=== PATIENT | female | born 1965 | race Caucasian/White ===

== ENCOUNTER 2016-08-11 13:20 | Emergency (ER) | payer MEDICAID ==
[2016-08-11] MEDS ORDERED: DUONEB INH ONE ×2 (17:02)
[2016-08-11] MEDS ORDERED: METHYLPRED SOD SUCC 125 MG/2 ML VIAL ONE (17:08)
[2016-08-11] MEDS ORDERED: KETOROLAC 30 MG/ML VIAL ONE (17:08)
[2016-08-11] MEDS ORDERED: CYCLOBENZAPRINE 10 MG TAB ONE (21:02)
== END 2016-08-11 21:25 | disposition home or self-care (01) ==
LOC: ER 13:20
CPT/HCPCS: 71020; 93005; 94640; 96375

== ENCOUNTER 2016-08-13 11:46 | Inpatient (IN) | payer MEDICAID ==
[~2016-08-13] VITALS: Ht 160 cm; Wt 63.5 kg
[2016-08-13] MEDS ORDERED: DUONEB INH ONE ×2 (12:17)
[2016-08-13] MEDS ORDERED: KETOROLAC 30 MG/ML VIAL ONE (13:40)
[2016-08-13] MEDS: NEB-XOPENEX 0.63 MG/3 ML INH SCH ×3 (15:30→23:00)
[2016-08-13] MEDS ORDERED: SALINE FLUSH 10 ML FLUSH PRN (15:30)
[2016-08-13 16:53] VITALS: BP_SYST 136; BP_SYST 138; RESP 20; TEMP 98
[2016-08-13 17:03] VITALS: Ht 160 cm; Wt 63.5 kg
[2016-08-13 17:29] VITALS: RESP 16
[2016-08-13] MEDS: AZITHROMYCIN 500 MG in SODIUM CHLORIDE 0.9% 250 ML IV SCH (17:45)
[2016-08-13] MEDS: ENOXAPARIN 40 MG/0.4 ML SYR SUBQ SCH (17:45)
[2016-08-13] MEDS: METHYLPRED SOD SUCC 125 MG/2 ML VIAL IV SCH ×2 (18:00→23:35)
[2016-08-13] MEDS ORDERED: PROMETHAZINE 12.5 MG TAB PO PRN (18:15)
[2016-08-13] MEDS: oxyCODONE/APAP 10/325 TABLET PO PRN (18:40)
[2016-08-13 19:50] VITALS: BP_SYST 119; RESP 20; TEMP 98.3
[2016-08-13] MEDS: LEVETIRACETAM 500 MG TAB PO SCH (20:30)
[2016-08-13] MEDS: QUEtiapine 100 MG TAB PO SCH (20:30)
[2016-08-13] MEDS: VENLAFAXINE XR 150 MG CAP PO SCH (20:30)
[2016-08-13] MEDS: SALINE FLUSH 10 ML FLUSH SCH (20:30)
[2016-08-13 23:13] VITALS: BP_SYST 100; RESP 18; TEMP 98.1
[2016-08-14] MEDS: NEB-XOPENEX 0.63 MG/3 ML INH SCH ×6 (02:47→23:00)
[2016-08-14 04:00] VITALS: BP_SYST 123; RESP 18; TEMP 98.4
[2016-08-14] MEDS: SODIUM CHLORIDE 0.9% FLUSH BAG 500 ML IV SCH (06:07)
[2016-08-14] MEDS: METHYLPRED SOD SUCC 125 MG/2 ML VIAL IV SCH ×4 (06:07→23:08)
[2016-08-14] MEDS: oxyCODONE/APAP 10/325 TABLET PO PRN ×3 (07:02→18:03)
[2016-08-14 07:18] VITALS: BP_SYST 121; RESP 22; TEMP 98.2
[2016-08-14] MEDS: SALINE FLUSH 10 ML FLUSH SCH ×2 (08:29→20:08)
[2016-08-14] MEDS: AZITHROMYCIN 500 MG in SODIUM CHLORIDE 0.9% 250 ML IV SCH (08:29)
[2016-08-14] MEDS: QUEtiapine 100 MG TAB PO SCH ×2 (08:31→20:08)
[2016-08-14] MEDS: VENLAFAXINE XR 150 MG CAP PO SCH ×2 (08:31→20:08)
[2016-08-14] MEDS: LEVETIRACETAM 500 MG TAB PO SCH ×2 (08:31→20:08)
[2016-08-14] MEDS: CHOLECALCIFEROL 5,000 UNITS CAP PO SCH (08:32)
[2016-08-14] MEDS: OXCARBAZEPINE 300 MG TAB PO SCH (08:32)
[2016-08-14] MEDS ORDERED: MISSING DOSE XX ONE (08:40)
[2016-08-14] MEDS: PROMETHAZINE 25 MG TAB PO PRN ×2 (09:44→19:12)
[2016-08-14] MEDS: CALCITONIN SALMON NARE ALT SCH (09:44)
[2016-08-14] MEDS: NICOTINE 21 MG/24 HR TRANSDERM SCH (10:46)
[2016-08-14 11:13] VITALS: BP_SYST 111; RESP 20; TEMP 98.7
[2016-08-14 15:33] VITALS: BP_SYST 103; RESP 20; TEMP 98.2
[2016-08-14] MEDS: ENOXAPARIN 40 MG/0.4 ML SYR SUBQ SCH (18:04)
[2016-08-14 19:44] VITALS: BP_SYST 124; RESP 16; TEMP 98.2
[2016-08-14 23:02] VITALS: BP_SYST 116; RESP 20; TEMP 97.8
[2016-08-15] MEDS: oxyCODONE/APAP 10/325 TABLET PO PRN ×4 (01:47→22:24)
[2016-08-15] MEDS: NEB-XOPENEX 0.63 MG/3 ML INH SCH ×5 (02:56→22:48)
[2016-08-15 03:10] VITALS: BP_SYST 129; RESP 16; TEMP 97.9
[2016-08-15] MEDS: SODIUM CHLORIDE 0.9% FLUSH BAG 500 ML IV SCH (06:03)
[2016-08-15] MEDS: METHYLPRED SOD SUCC 125 MG/2 ML VIAL IV SCH ×3 (06:03→18:08)
[2016-08-15] MEDS: PROMETHAZINE 25 MG TAB PO PRN ×2 (06:11→15:34)
[2016-08-15 07:14] VITALS: BP_SYST 130; RESP 20; TEMP 98.2
[2016-08-15] MEDS ORDERED: NICOTINE 21 MG/24 HR TRANSDERM SCH (09:00)
[2016-08-15] MEDS: AZITHROMYCIN 500 MG in SODIUM CHLORIDE 0.9% 250 ML IV SCH (10:26)
[2016-08-15] MEDS: SALINE FLUSH 10 ML FLUSH SCH ×2 (10:27→19:57)
[2016-08-15] MEDS: CALCITONIN SALMON NARE ALT SCH (10:27)
[2016-08-15] MEDS: LEVETIRACETAM 500 MG TAB PO SCH ×2 (10:27→20:02)
[2016-08-15] MEDS: QUEtiapine 100 MG TAB PO SCH ×2 (10:28→20:02)
[2016-08-15] MEDS: OXCARBAZEPINE 300 MG TAB PO SCH (10:28)
[2016-08-15] MEDS: CHOLECALCIFEROL 5,000 UNITS CAP PO SCH (10:28)
[2016-08-15] MEDS: VENLAFAXINE XR 150 MG CAP PO SCH ×2 (10:28→20:02)
[2016-08-15] MEDS: NICOTINE 21 MG/24 HR TRANSDERM SCH (10:29)
[2016-08-15 11:09] VITALS: BP_SYST 114; RESP 20; TEMP 98
[2016-08-15] MEDS ORDERED: MISSING DOSE XX ONE ×2 (12:40→14:50)
[2016-08-15] MEDS: GUAIFENESIN 10 ML UDC PO PRN (14:40)
[2016-08-15 15:22] VITALS: BP_SYST 137; RESP 20; TEMP 97.9
[2016-08-15] MEDS: ENOXAPARIN 40 MG/0.4 ML SYR SUBQ SCH (18:07)
[2016-08-15 19:37] VITALS: BP_SYST 127; RESP 20; TEMP 98.1
[2016-08-15] MEDS: DILAUDID 1 MG/ML AMP IV PRN (19:59)
[2016-08-15 23:08] VITALS: BP_SYST 132; RESP 20; TEMP 97.9
[2016-08-16] MEDS: DILAUDID 1 MG/ML AMP IV PRN ×4 (00:39→20:18)
[2016-08-16] MEDS: NEB-XOPENEX 0.63 MG/3 ML INH SCH ×6 (03:00→23:00)
[2016-08-16 03:34] VITALS: BP_SYST 125; RESP 18; TEMP 97.7
[2016-08-16] MEDS: SODIUM CHLORIDE 0.9% FLUSH BAG 500 ML IV SCH (05:56)
[2016-08-16] MEDS: oxyCODONE/APAP 10/325 TABLET PO PRN ×3 (05:58→18:18)
[2016-08-16 07:26] VITALS: BP_SYST 122; RESP 16; TEMP 97.5
[2016-08-16] MEDS: SALINE FLUSH 10 ML FLUSH SCH ×2 (07:58→20:17)
[2016-08-16] MEDS: CALCITONIN SALMON NARE ALT SCH (07:59)
[2016-08-16] MEDS: VENLAFAXINE XR 150 MG CAP PO SCH ×2 (07:59→20:17)
[2016-08-16] MEDS: LEVETIRACETAM 500 MG TAB PO SCH ×2 (07:59→20:17)
[2016-08-16] MEDS: NICOTINE 21 MG/24 HR TRANSDERM SCH (08:00)
[2016-08-16] MEDS: GUAIFENESIN 10 ML UDC PO PRN (08:00)
[2016-08-16] MEDS: CHOLECALCIFEROL 5,000 UNITS CAP PO SCH (08:00)
[2016-08-16] MEDS: PREDNISONE 50 MG TAB PO SCH (08:01)
[2016-08-16] MEDS: OXCARBAZEPINE 300 MG TAB PO SCH (08:01)
[2016-08-16] MEDS: PROMETHAZINE 25 MG TAB PO PRN (08:01)
[2016-08-16] MEDS: AZITHROMYCIN 500 MG in SODIUM CHLORIDE 0.9% 250 ML IV SCH (08:14)
[2016-08-16] MEDS: QUEtiapine 100 MG TAB PO SCH ×2 (10:25→20:17)
[2016-08-16 11:34] VITALS: BP_SYST 115; RESP 16; TEMP 97.6
[2016-08-16 14:58] VITALS: BP_SYST 114; RESP 16; TEMP 97.8
[2016-08-16] MEDS: ENOXAPARIN 40 MG/0.4 ML SYR SUBQ SCH (17:23)
[2016-08-16 19:25] VITALS: BP_SYST 114; RESP 18; TEMP 98.1
[2016-08-16 23:26] VITALS: BP_SYST 114; RESP 18; TEMP 98
[2016-08-17] MEDS: DILAUDID 1 MG/ML AMP IV PRN ×6 (02:11→22:28)
[2016-08-17] MEDS: NEB-XOPENEX 0.63 MG/3 ML INH SCH ×6 (02:36→22:44)
[2016-08-17 03:46] VITALS: BP_SYST 125; RESP 18; TEMP 97.8
[2016-08-17] MEDS: SODIUM CHLORIDE 0.9% FLUSH BAG 500 ML IV SCH (05:47)
[2016-08-17 08:02] VITALS: BP_SYST 121; RESP 18; TEMP 97.9
[2016-08-17] MEDS: oxyCODONE/APAP 10/325 TABLET PO PRN ×2 (08:15→16:27)
[2016-08-17] MEDS: LEVETIRACETAM 500 MG TAB PO SCH ×2 (08:15→21:23)
[2016-08-17] MEDS: CALCITONIN SALMON NARE ALT SCH (08:15)
[2016-08-17] MEDS: OXCARBAZEPINE 300 MG TAB PO SCH (08:15)
[2016-08-17] MEDS: CHOLECALCIFEROL 5,000 UNITS CAP PO SCH (08:16)
[2016-08-17] MEDS: QUEtiapine 100 MG TAB PO SCH ×2 (08:16→21:23)
[2016-08-17] MEDS: VENLAFAXINE XR 150 MG CAP PO SCH ×2 (08:16→21:22)
[2016-08-17] MEDS: PROMETHAZINE 25 MG TAB PO PRN ×3 (08:16→22:27)
[2016-08-17] MEDS: NICOTINE 21 MG/24 HR TRANSDERM SCH (08:16)
[2016-08-17] MEDS: PREDNISONE 50 MG TAB PO SCH (08:17)
[2016-08-17] MEDS: SALINE FLUSH 10 ML FLUSH SCH ×2 (08:18→21:24)
[2016-08-17 11:11] VITALS: BP_SYST 117; RESP 18; TEMP 98.2
[2016-08-17 14:54] VITALS: BP_SYST 127; RESP 16; TEMP 98.2
[2016-08-17] MEDS: ENOXAPARIN 40 MG/0.4 ML SYR SUBQ SCH (17:31)
[2016-08-17 19:06] VITALS: BP_SYST 128; RESP 18; TEMP 97.9
[2016-08-17 22:56] VITALS: BP_SYST 118; RESP 18; TEMP 97.9
[2016-08-18] MEDS: oxyCODONE/APAP 10/325 TABLET PO PRN ×2 (02:02→09:16)
[2016-08-18] MEDS: NEB-XOPENEX 0.63 MG/3 ML INH SCH ×3 (02:50→10:52)
[2016-08-18 03:21] VITALS: BP_SYST 125; RESP 16; TEMP 98.3
[2016-08-18] MEDS: SODIUM CHLORIDE 0.9% FLUSH BAG 500 ML IV SCH (05:04)
[2016-08-18] MEDS: DILAUDID 1 MG/ML AMP IV PRN (05:14)
[2016-08-18 07:19] VITALS: BP_SYST 114; RESP 18; TEMP 97.9
[2016-08-18] MEDS: VENLAFAXINE XR 150 MG CAP PO SCH (08:22)
[2016-08-18] MEDS: LEVETIRACETAM 500 MG TAB PO SCH (08:22)
[2016-08-18] MEDS: QUEtiapine 100 MG TAB PO SCH (08:22)
[2016-08-18] MEDS: CHOLECALCIFEROL 5,000 UNITS CAP PO SCH (08:22)
[2016-08-18] MEDS: NICOTINE 21 MG/24 HR TRANSDERM SCH (08:22)
[2016-08-18] MEDS: OXCARBAZEPINE 300 MG TAB PO SCH (08:24)
[2016-08-18] MEDS: PREDNISONE 50 MG TAB PO SCH (08:24)
[2016-08-18] MEDS: SALINE FLUSH 10 ML FLUSH SCH (08:24)
[2016-08-18] MEDS: CALCITONIN SALMON NARE ALT SCH (08:24)
[2016-08-18 10:30] VITALS: BP_SYST 114; RESP 18; TEMP 97.9
== END 2016-08-18 12:19 | disposition home health service (06) | DRG 192 ==
LOC: ENRESERVDT → ENRESERVTM → ER 11:46 → EMR 15:39 → ENPENDDIS 15:39 → 4NT 16:42
PROVIDERS: ADMIT Internal Medicine; ATTEND Internal Medicine
CPT/HCPCS: 36415; 36600; 71020; 80053; 82553; 82803; 83880; 84484; 85025; 85379; 93005; 94640; 94667; 94668; 94799; 96372